=== PATIENT | female | born 1965 | race African-American/Black ===

== ENCOUNTER 2016-05-24 22:37 | Emergency (ER) | payer MEDICARE, MEDICAID ==
[~2016-05-24] VITALS: Ht 162.6 cm; Wt 132.0 kg
[~2016-05-24 22:37] MED LIST: ABILIFY; COGENTIN; LITHIUM; METFORMIN
[2016-05-24 23:03] VITALS: BP 141/67
== END 2016-05-25 02:20 | disposition left against medical advice (07) ==
LOC: ER 22:50
DX: Z53.21 Procedure and treatment not carried out due to patient leaving prior to being seen by health care provider (principal)

== ENCOUNTER 2016-08-03 08:02 | Emergency (ER) | payer MEDICARE, OTHER ==
[~2016-08-03] VITALS: Ht 167.6 cm; Wt 113.0 kg
[2016-08-03 10:29] LABS: EOSINOPHILS % 0.6 % (0.0-5.0); MEAN CORPUSCULAR HEMOGLOBIN 25.7 pg (28.0-32.0); MEAN CORPUSCULAR VOLUME 77.6 fL (81.0-99.0); MEAN PLATELET VOLUME 7.6 fl (7.4-10.4); NEUTROPHILS % 53.4 % (40.0-76.0); PLATELET 328 x1000/uL (130-400); RED BLOOD CELL COUNT 4.64 mill/uL (4.2-5.4); RED CELL DISTRIBUTION WIDTH 15.7 % (11.6-14.6)
[2016-08-03 10:34] LABS: CLARITY URINE CLEAR (CLEAR); COLOR URINE YELLOW (YELLOW); GLUCOSE URINE NEGATIVE (NEGATIVE); KETONES URINE NEGATIVE (NEGATIVE); LEUKOCYTE ESTERASE URINE NEGATIVE (NEGATIVE); NITRITE URINE NEGATIVE (NEGATIVE); OCCULT BLOOD URINE 3+ (NEGATIVE); PROTEIN URINE NEGATIVE (NEGATIVE); SPECIFIC GRAVITY URINE 1.011 (1.005-1.030); UROBILINOGEN URINE 0.2 E.U./dL (0.2-1.0)
[2016-08-03 10:44] LABS: CARBON DIOXIDE 26 mEq/L (21-32); CHLORIDE 107 mEq/L (98-107); ETHANOL BLOOD < 10 mg/dL
[2016-08-03 10:53] LABS: *AMPHETAMINES SCREEN URINE NEGATIVE (NEGATIVE); *BARBITURATES SCREEN URINE NEGATIVE (NEGATIVE); *BENZODIAZEPINES SCREEN URINE NEGATIVE (NEGATIVE); *COCAINE SCREEN URINE NEGATIVE (NEGATIVE); CANNABINOID URINE SCREEN NEGATIVE (NEGATIVE); METHADONE URINE SCREEN NEGATIVE (NEGATIVE); OPIATES URINE SCREEN NEGATIVE (NEGATIVE); PHENCYCLIDINE URINE SCREEN NEGATIVE (NEGATIVE)
[2016-08-03 12:38] VITALS: BP 152/90
== END 2016-08-03 13:54 | disposition home or self-care (01) ==
LOC: ER 08:52
DX: F20.9 Schizophrenia, unspecified (principal); F41.9 Anxiety disorder, unspecified
CPT/HCPCS: 36415; 80053; 80305; 80307; 80329; 81001; 85025; 99284; G0482

== ENCOUNTER 2016-11-16 05:32 | Emergency (ER) | payer MEDICARE, OTHER ==
[~2016-11-16] VITALS: Ht 165.1 cm; Wt 113.0 kg
[2016-11-16 06:17] VITALS: BP 138/90
== END 2016-11-16 07:19 | disposition home or self-care (01) ==
LOC: ER 05:32
DX: R51 Headache (principal); R03.0 Elevated blood-pressure reading, without diagnosis of hypertension; F31.9 Bipolar disorder, unspecified
CPT/HCPCS: 99283

== ENCOUNTER 2016-11-16 13:09 | Emergency (ER) | payer MEDICARE, OTHER ==
[~2016-11-16] VITALS: Ht 170.2 cm; Wt 120.0 kg
[2016-11-16 13:12] VITALS: BP 126/76
== END 2016-11-16 17:20 | disposition left against medical advice (07) ==
LOC: ER 13:15
DX: Z53.21 Procedure and treatment not carried out due to patient leaving prior to being seen by health care provider (principal)

== ENCOUNTER 2016-11-25 00:48 | Emergency (ER) | payer MEDICARE, OTHER ==
[~2016-11-25] VITALS: Ht 170.2 cm; Wt 127.0 kg
[2016-11-25 00:53] VITALS: BP 141/86
== END 2016-11-25 01:58 | disposition left against medical advice (07) ==
LOC: ER 00:57
DX: Z53.21 Procedure and treatment not carried out due to patient leaving prior to being seen by health care provider (principal)

== ENCOUNTER 2019-07-31 02:11 | Emergency (ER) | payer MEDICARE, OTHER ==
[~2019-07-31] VITALS: Ht 167.6 cm; Wt 114.0 kg
[2019-07-31 02:43] LABS: BASOPHILS % 0.5 % (0.0-2.0); EOSINOPHILS % 1.4 % (0.0-5.0); HEMATOCRIT. 37.7 % (36.0-48.0); HEMOGLOBIN. 12.8 g/dL (12.0-16.0); LYMPHOCYTES % 44.1 % (20.0-50.0); MEAN CORPUSCULAR HEMOGLOBIN 27.4 pg (28.0-32.0); MEAN CORPUSCULAR VOLUME 80.7 fL (81.0-99.0); MONOCYTES % 9.3 % (2.0-8.0); NEUTROPHILS % 44.7 % (40.0-76.0); PLATELET 274 x1000/uL (130-400); RED BLOOD CELL COUNT 4.67 mill/uL (4.2-5.4); RED CELL DISTRIBUTION WIDTH 14.9 % (11.6-14.6)
[2019-07-31 02:47] LABS: CHLORIDE 110 mEq/L (98-107)
[2019-07-31 03:48] LABS: CLARITY URINE CLEAR (CLEAR); COLOR URINE YELLOW (YELLOW); KETONES URINE NEGATIVE (NEGATIVE); LEUKOCYTE ESTERASE URINE TRACE (NEGATIVE); NITRITE URINE NEGATIVE (NEGATIVE); OCCULT BLOOD URINE NEGATIVE (NEGATIVE); PROTEIN URINE NEGATIVE (NEGATIVE); SPECIFIC GRAVITY URINE 1.011 (1.005-1.030); UROBILINOGEN URINE 0.2 E.U./dL (0.2-1.0)
[2019-07-31] MEDS ORDERED: CEPHALEXIN 250MG CAPSULE PO ONE (04:15)
[2019-07-31 04:30] VITALS: BP 129/89
[2019-08-03 07:07] LABS: NEISSERIA GONORRHOEAE NAA Negative (Negative)
== END 2019-07-31 04:38 | disposition home or self-care (01) ==
LOC: ER 02:11
DX: N39.0 Urinary tract infection, site not specified (principal); R30.0 Dysuria; F31.9 Bipolar disorder, unspecified
CPT/HCPCS: 36415; 80053; 81003; 85025; 87491; 87591; 99283

== ENCOUNTER 2021-06-25 09:53 | Emergency (ER) | payer OTHER ==
[~2021-06-25] VITALS: Ht 162.6 cm; Wt 141.0 kg
[2021-06-25 10:05] VITALS: BP 163/110
[2021-06-25] MEDS ORDERED: IBUP-2030 MT (10:16)
[2021-06-25] MEDS ORDERED: CEPH500T MT (10:16)
== END 2021-06-25 11:39 | disposition home or self-care (01) ==
LOC: ER 09:53
DX: L03.112 Cellulitis of left axilla (principal)
CPT/HCPCS: 99281; 99283

== ENCOUNTER 2022-01-22 03:27 | Emergency (ER) | payer OTHER, MEDICAID ==
[~2022-01-22] VITALS: Ht 162.6 cm; Wt 149.1 kg
[~2022-01-22 03:27] MED LIST changes: -ABILIFY; +CEPH500T MT; -COGENTIN; +IBUP-2030 MT; -LITHIUM; -METFORMIN
[2022-01-22 03:33] VITALS: BP 149/92
[2022-01-22] MEDS ORDERED: IBUPROFEN 800MG TABLET PO ONE (06:45)
[2022-01-22] MEDS ORDERED: DOXYCYCLINE HYCLATE 100MG CAPSULE PO ONE (06:45)
[2022-01-22] MEDS ORDERED: CEFTRIAXONE SODIUM 1 G/VIAL IM ONE (06:45)
[2022-01-22] MEDS ORDERED: DOXYCYCLINE HYCLATE 100MG CAPSULE PO NR (08:30)
[2022-01-22] MEDS ORDERED: CEFTRIAXONE SODIUM 1 G/VIAL IM NR (08:30)
[2022-01-22] MEDS ORDERED: IBUPROFEN 800MG TABLET PO NR (08:30)
[2022-01-22] MEDS ORDERED: DOXY100T2 PO (08:59)
[2022-01-22] MEDS ORDERED: AMOX1TAB16 PO (08:59)
== END 2022-01-22 10:05 | disposition home or self-care (01) ==
LOC: ER 03:27
DX: K04.7 Periapical abscess without sinus (principal); A64 Unspecified sexually transmitted disease; F31.9 Bipolar disorder, unspecified
CPT/HCPCS: 99284; J0696

== ENCOUNTER 2022-02-07 04:28 | Emergency (ER) | payer MEDICAID, MEDICARE ==
[~2022-02-07] VITALS: Ht 162.6 cm; Wt 149.5 kg
[~2022-02-07 04:28] MED LIST changes: +AMOX1TAB16 PO; +DOXY100T2 PO
[2022-02-07 04:39] VITALS: BP 178/104
[2022-02-07] MEDS ORDERED: MAGNESIUM/ALUMINUM HYDROXIDE/SIMETHICONE 30ML UDC PO STA (06:35)
[2022-02-07 06:57] LABS: CLARITY URINE CLEAR (CLEAR); COLOR URINE YELLOW (YELLOW); KETONES URINE NEGATIVE (NEGATIVE); LEUKOCYTE ESTERASE URINE NEGATIVE (NEGATIVE); NITRITE URINE NEGATIVE (NEGATIVE); OCCULT BLOOD URINE NEGATIVE (NEGATIVE); PH URINE 6.5 (4.5-8.0); PROTEIN URINE NEGATIVE (NEGATIVE); SPECIFIC GRAVITY URINE 1.016 (1.005-1.030); UROBILINOGEN URINE 0.2 E.U./dL (0.2-1.0)
== END 2022-02-07 07:48 | disposition home or self-care (01) ==
LOC: ER 04:28
DX: R05.9 Cough, unspecified (principal); Z79.899 Other long term (current) drug therapy
CPT/HCPCS: 71045; 81003; 81025; 99284